=== PATIENT | female | born 1970 | race Two or more races ===

== ENCOUNTER 2020-08-20 01:02 | Emergency (ER) | payer MEDICAID ==
[~2020-08-20] VITALS: Ht 167.6 cm; Wt 86.2 kg
[2020-08-20 02:06] LABS: Urine Bacteria FEW /hpf (None Seen); Urine Blood Negative /uL (Negative); Urine Specific Gravity 1.009 (1.001-1.035); Urine WBC <1 /hpf (0 - 5)
== END 2020-08-20 04:03 | disposition home or self-care (01) ==
LOC: ER 01:06
DX: N76.0 Acute vaginitis (principal); B96.89 Other specified bacterial agents as the cause of diseases classified elsewhere
CPT/HCPCS: 81001